=== PATIENT | male | born 2000 | race Asian ===

== ENCOUNTER 2019-06-18 15:50 | Emergency (ER) | payer OTHER, SELFPAY ==
[2019-06-18 15:59] VITALS: BP 138/91; PULSE 130; RESP 20; TEMP 37.8; O2SAT 100
--- NOTE | 2019-06-18 16:41 | WPDEDEXPGENP ---
HPI - General Ped General Chief complaint: Fever Stated complaint: Fever Time Seen by Provider: 06/18/19 16:25 Source: patient and RN notes reviewed Mode of arrival: ambulatory Limitations: no limitations Nursing Documentation: reviewed/agree History of Present Illness HPI narrative: Patient presents today complaining of cough, temperature of 99, nausea vomiting, scratchiness in the throat, headache, nasal congestion. Symptoms began last night. Denies ear pain, diarrhea, or abdominal pain. He has been able to drink fluids today. He has tried no medication for symptoms prior to arrival. Patient works as a scribe in emergency department. MD complaint: Congestion, sore throat, vomiting Related Data Allergies Allergy/AdvReac Type Severity Reaction Status Date / Time No Known Allergies Allergy Verified 06/18/19 15:55 Pediatric Review of Systems : Review of Systems: CONSTITUTIONAL: Denies body aches, fever, chills, or sweats. EYES: Denies visual changes, redness, or discharge. ENT: Denies rhinorrhea, or otalgia.+ Sore throat, congestion CARDIOVASCULAR: Denies chest pain, palpitations, or edema. RESPIRATORY: Denies dyspnea.+ Cough GASTROINTESTINAL: Denies abdominal pain, or diarrhea.+ Nausea, vomiting GENITOURINARY: Denies dysuria or hematuria. SKIN: Denies rash, itching, or wounds. MUSCULOSKELETAL: Denies back pain, joint pain, or myalgia. NEUROLOGIC: Denies numbness, tingling, or weakness.+ Headache PSYCH: Denies depression or anxiety. PMFSH Comments At time of signature, I have reviewed and agree with nursing past medical, surgical, social and family history unless otherwise noted. Please see nursing chart for further information. There is no relevant family history pertinent to the presenting complaint Pediatric Exam Narrative: Physical exam: GENERAL: Well-appearing, well-nourished, and in no acute distress. HEAD: Normocephalic, atraumatic. EYES: EOMI. No redness or drainage. Conjunctivae normal. ENT: Mucous membranes pink and moist. Nares congested. No rhinorrhea. TMs normal bilaterally. Throat erythematous without edema or exudate. Uvula midline. NECK: Normal AROM. Supple. No lymphadenopathy. CHEST: No respiratory distress. Clear to auscultation. HEART: Regular rate and rhythm. No murmur appreciated. Normal peripheral pulses. EXTREMITIES: Normal range of motion. No edema. SKIN: Warm, dry, no rash. NEURO: No focal deficits. Alert and oriented x3. Gait steady. PSYCH: Normal affect. No signs of depression or anxiety. Course Vital Signs Vital signs: Vital Signs Temperature 100.1 F H 06/18/19 15:59 Pulse Rate 130 H 06/18/19 15:59 Respiratory Rate 06/18/19 15:59 Blood Pressure 138/91 H 06/18/19 15:59 Pulse Oximetry 100 06/18/19 15:59 Temperature 100.1 F H 06/18/19 15:59 Pulse Rate 130 H 06/18/19 15:59 Respiratory Rate 06/18/19 15:59 Blood Pressure 138/91 H 06/18/19 15:59 Pulse Oximetry 100 06/18/19 15:59 Reviewed. Pt has been instructed to follow up with his PCP regarding his elevated blood pressure today. Medical Decision Making Differential Diagnosis Differential Diagnosis: Strep throat, influenza, URI, bronchitis, pharyngitis, AOM Vital Signs Vital Signs: Vital Signs Temperature 100.1 F H 06/18/19 15:59 Pulse Rate 130 H 06/18/19 15:59 Respiratory Rate 06/18/19 15:59 Blood Pressure 138/91 H 06/18/19 15:59 Pulse Oximetry 100 06/18/19 15:59 Temperature 100.1 F H 06/18/19 15:59 Pulse Rate 130 H 06/18/19 15:59 Respiratory Rate 06/18/19 15:59 Blood Pressure 138/91 H 06/18/19 15:59 Pulse Oximetry 100 06/18/19 15:59 Lab Data Lab results reviewed: Yes I reviewed the patient's lab results. Labs: Influenza A Screen Negative Reference Range: Negative Influenza B Screen Negative Reference Range: Negative Strep Screen Presumptive Negative *(Reference Range: Negative)*
== END 2019-06-18 17:00 | disposition home or self-care (01) ==
PROVIDERS: Emergency Provider Nurse Practitioner
DX: B34.9 Viral infection, unspecified (principal)
CPT/HCPCS: 87081; 87804; 87880; 99213; G0463